=== PATIENT | female | born 1965 | race Caucasian/White ===

== ENCOUNTER 2024-06-20 12:54 | Emergency (ER) | payer OTHER, SELFPAY ==
[2024-06-20 13:13] VITALS: BP 162/100; PULSE 69; TEMP 37.3; O2SAT 99; BMI 37.8
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
== END 2024-06-20 15:30 | disposition left against medical advice (07) ==
PROVIDERS: Emergency Provider Emergency Medicine
DX: R07.81 Pleurodynia (principal); Z53.21 Procedure and treatment not carried out due to patient leaving prior to being seen by health care provider
CPT/HCPCS: 71101; 99281